=== PATIENT | male | born 1945 | race Caucasian/White ===

== ENCOUNTER 2019-05-17 20:56 | Emergency (ER) | payer MEDICARE, OTHER, SELFPAY ==
[2019-05-17 21:06] VITALS: BP 82/50; PULSE 75; RESP 11; O2SAT 92
--- NOTE | 2019-05-17 21:12 | ED.SYNCOPE ---
HPI - Syncope General Chief Complaint: Syncope Stated Complaint: Syncope Time Seen by Provider: 05/17/19 20:58 Source: patient, family () and EMS Mode of arrival: EMS Limitations: no limitations History of Present Illness HPI narrative: This is a 74-year-old male who comes to the emergency department for syncopal episode just prior to arrival. Patient had flown back from [place] waking about 3:00 a.m. this morning. Him and his had sat down to have dinner and were having food. At about 7:00 a.m. he had taken an edible, he also had about 2 and half glasses of wine and took his sildenafil at 8:00 p.m.. While they were sitting at dinner his states that he lost consciousness. She states he was very pale he appears diaphoretic and they believed he had about 3-4 minutes of unconsciousness. She states that she did tried a pinch him and sternal rub him and there was no response. She stated he she stayed in his chair and did not fall. Patient had about 90 seconds of witness decreased consciousness with EMS and they state then he immediately came back to consciousness and did not seem to have any altered mental status. Patient states that he did not have any sensation that he was about to pass out. Patient did not have any witnessed seizure activity by his . He states that this time he feels high but otherwise fine. He denies any headache, no vision changes, no weakness, no difficulty speech, no numbness or tingling. He denies any chest pain or pressure, no shortness of breath, no nausea, no vomiting no other recent GI or urinary symptoms. He did have urinary incontinence during the episode. He denies any swelling in his extremities. Patient did have a left hip replacement in February, otherwise he takes some vitamins but no other medical issues. 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 He does not smoke tobacco, he has alcohol usually on a Monday for their date night and had typically has not had a bowl on Monday further date night otherwise he does not typically partake. He is not on any other medications, no prior allergies. No other surgeries. Patient has had 1 similar event in the past remotely. Related Data Allergies Allergy/AdvReac Type Severity Reaction Status Date / Time No Known Drug Allergies Allergy Verified 05/17/19 21:50 Review of Systems Review of Systems ROS Unobtainable: All systems reviewed & are unremarkable except as noted in HPI and below Constitutional Constitutional: Denies body ache(s), Denies chills, Denies fever(s) and Denies headache(s) ENT Ears, Nose, Mouth, and Throat: Denies headache(s) Neurologic Neurologic: Denies headache(s) Patient History Surgical History (Updated 05/17/19 @ 21:17 by Pat England DO) History of hip replacement (Acute) Social History Smoking Status: Never smoker Smoking Status: Never smoker Alcohol type: wine (2.5 glasses every monday) Substance Use Type: marijuana (edible every monday) Exam Narrative Exam Narrative: GEN: well nourished, well appearing male, alert and oriented x 3, patient appears to be in mild distress. Patient is joking throughout evaluation. HEENT: Atraumatic, pupils are equal round reactive to light, extraocular movements are intact, nares are clear, TMs are clear with no fluid, there is no conjunctival pallor. Throat is clear without any exudates, erythema, tonsillar enlargement or uvular deviation, no facial droop. No meningeal signs. HEART: Regular rate and rhythm without murmur, clicks, rubs. Pulses are equal in upper and lower extremities LUNGS:Lungs clear to auscultation, no wheezes, rales, crackles, chest moves symmetrically ABD:bowel sounds normal, soft, non-tender, no guarding, rebound, rigidity, no masses noted, no hepatosplenomegaly :No CVA tenderness BACK: No cervical, thoracic or lumbar vertebral point tenderness. Patient has normal range of motion. Patient's gait is not tested. MSCL: Non-tender, no muscle atrophy, muscles strength 5/5 upper and lower extremities, full range of motion NEURO:CN 2-12 intact, sensation normal, reflexes 2/4 upper and lower extremities. finger nose finger test normal, heel verdugo test normal SKIN: No rash no erythema, no petechiae or other skin changes. Initial Vital Signs Initial Vital Signs: Vital Signs Pulse Rate 75 05/17/19 21:06 Respiratory Rate 11 L 05/17/19 21:06 Blood Pressure 82/50 L 05/17/19 21:06 Pulse Oximetry 92 05/17/19 21:06 Scores NIH Stroke Scale Level of Conciousness: Alert, keenly responsive Ask month/age: Answers both questions correctly. Open/close eyes, close hand: Performs both tasks correctly Best gaze horizontal: Normal Visual chaudhry: No visual loss Facial palsy: Normal symetrical movement Left arm drift: No drift for full 10 sec Right arm drift: No drift for full 10 sec Left leg drift: No drift for full 10 sec Right leg drift: No drift for full 10 sec Limb ataxia: Absent Sensory on face/arms/legs: Normal, no sensory loss Best language: No aphasia, normal Dysarthria: Normal Extinction or inattention: No abnormality Total NIH Stroke scale score: 0 Course Orders Ordered: ED Orders 05/17/19 21:11 CT head/brain wo con Stat XR chest 1V Stat 05/17/19 21:14 Complete Blood Count AUTO DIFF Stat Comprehensive Metabolic Panel Stat D Dimer Stat Ethanol (ETOH) Stat Lipase Stat Troponin & CK Cardiac Panel Stat 05/17/19 22:10 CT angio chest PE protocol Stat 05/17/19 23:15 Troponin & CK Cardiac Panel Stat EKG-12 Lead Stat 05/17/19 23:20 Urine Microscopic Stat Discontinued Medications Sodium Chloride (Normal Saline 0.9%) 1,000 mls @ 1,000 mls/hr IV BOLUS ONE Stop: 05/17/19 22:09 Last Infusion: 05/17/19 22:14 Dose: 1,000 mls/hr Documented by: Admin: 05/17/19 21:14 Dose: 1,000 mls/hr Documented by: FOX Vital Signs Vital signs: Vital Signs - 8 hr 05/17/19 21:06 05/17/19 21:33 05/17/19 21:45 Pulse Rate 75 64 65 Respiratory Rate 11 L 11 L Blood Pressure 82/50 L Blood Pressure [Right Arm] 84/52 L 100/60 Pulse Oximetry 92 95 05/17/19 23:31 Pulse Rate 65 Respiratory Rate 12 Blood Pressure Blood Pressure [Right Arm] 109/67 Pulse Oximetry 98 MDM - Syncope Lab Data Attestation: I reviewed the patient's lab results. Result diagrams: 05/17/19 21:14 05/17/19 21:14 Labs: Lab Results 05/17/19 05/17/19 05/17/19 Range/Units 21:14 21:14 21:14 WBC 9.6 (4.5-11.0) X10^3/uL RBC 4.71 (4.5-5.9) X10^6/uL Hgb 15.6 (13.5-17.5) g/dL Hct 45.6 (41-53) % MCV 96.8 (80-100) fL MCH 33.1 (26-34) PG MCHC 34.2 (30-36) % RDW 13.8 (11.6-14.8) % Plt Count 278 (150-400) X10^3/uL Neut % (Auto) 45.5 L (50-75) % Lymph % (Auto) 36.0 (25-40) % Sunflower % (Auto) 14.2 H (3-14) % Eos % (Auto) 3.2 (2-4) % Baso % (Auto) 1.1 (0-2) % Neut # (Auto) 4400 (6699-3779) /uL Lymph # (Auto) 3400 (6327-8343) /uL Sunflower # (Auto) 1400 H (0-900) /uL Eos # (Auto) 300 (0-450) /uL Baso # (Auto) 100 (0-100) /uL D-Dimer 387 H (<230) ng/mL Sodium (137-145) mmol/L Potassium (3.4-5.1) mmol/L Chloride (98-107) mmol/L Carbon Dioxide (22-32) mmol/L BUN (9-20) mg/dL Creatinine (0.66-1.25) mg/dL Estimated GFR (>60) mL/min BUN/Creatinine Ratio (6-22) Glucose (80-110) mg/dL Calcium (8.4-10.2) mg/dL Total Bilirubin (0.2-1.3) mg/dL AST (17-59) IU/L ALT (<50) IU/L Alkaline Phosphatase (38-126) U/L Total Creatine Kinase (55-170) U/L CK-MB (CK-2) CK-MB (CK-2) Rel Index Troponin I (0.01-0.034) ng/mL Total Protein (6.3-8.2) g/dL Albumin (3.5-5.0) g/dL Globulin (1.7-4.1) g/dL Albumin/Globulin Ratio (1.0-2.8) Lipase 45 (23-300) U/L Urine RBC (0-5/HPF) Urine WBC (0-5/HPF) Urine Bacteria (None) Ur Culture Indicated? Ethyl Alcohol ( - 10) mg/dL 05/17/19 05/17/19 05/17/19 Range/Units 21:14 23:15 23:20 WBC (4.5-11.0) X10^3/uL RBC (4.5-5.9) X10^6/uL Hgb (13.5-17.5) g/dL Hct (41-53) % MCV (80-100) fL MCH (26-34) PG MCHC (30-36) % RDW (11.6-14.8) % Plt Count (150-400) X10^3/uL Neut % (Auto) (50-75) % Lymph % (Auto) (25-40) % Sunflower % (Auto) (3-14) % Eos % (Auto) (2-4) % Baso % (Auto) (0-2) % Neut # (Auto) (1970-1832) /uL Lymph # (Auto) (7056-8204) /uL Sunflower # (Auto) (0-900) /uL Eos # (Auto) (0-450) /uL Baso # (Auto) (0-100) /uL D-Dimer (<230) ng/mL Sodium 138 (137-145) mmol/L Potassium 3.3 L (3.4-5.1) mmol/L Chloride 102 (98-107) mmol/L Carbon Dioxide 23 (22-32) mmol/L BUN 17 (9-20) mg/dL Creatinine 0.90 (0.66-1.25) mg/dL Estimated GFR > 60.0 (>60) mL/min BUN/Creatinine Ratio 18.9 (6-22) Glucose 122 H (80-110) mg/dL Calcium 9.9 (8.4-10.2) mg/dL Total Bilirubin 0.8 (0.2-1.3) mg/dL AST 30 (17-59) IU/L ALT 17 (<50) IU/L Alkaline Phosphatase 87 (38-126) U/L Total Creatine Kinase 50 L 39 L (55-170) U/L CK-MB (CK-2) TNP TNP CK-MB (CK-2) Rel Index TNP TNP Troponin I < 0.012 < 0.012 (0.01-0.034) ng/mL Total Protein 7.8 (6.3-8.2) g/dL Albumin 4.5 (3.5-5.0) g/dL Globulin 3.3 (1.7-4.1) g/dL Albumin/Globulin Ratio 1.4 (1.0-2.8) Lipase (23-300) U/L Urine RBC None seen (0-5/HPF) Urine WBC None seen (0-5/HPF) Urine Bacteria None seen (None) Ur Culture Indicated? Cult not indicated Ethyl Alcohol 78 H ( - 10) mg/dL Urine Dip Bedside Urine Glucose Negative Bedside Urine Bilirubin - Negative Bedside Urine Ketone - Negative Urine Specific [place] 1.010 Bedside Urine Occult Blood +/- Bedside Urine pH 6.0 Bedside Urine Protein - Negative Bedside Urine Urobilinogen - Negative Bedside Urine Nitrite - Negative Bedside Urine Leukocytes - Negative Esterase Imaging Data Chest x-ray: Attestation: I personally reviewed and interpreted this imaging study as follows: Radiologist's Impression: [address] [address] XRay Report Signed Patient: Getachew wOensMR#: [id number] : [id number]:[id number] Age/Sex: 74 / MDate of Service: 05/17/19 Loc: ED Accession Number: [id number] Procedure: XR chest 1V Ordering Provider: Pat England D.O. PROCEDURE: XR CHEST 1V INDICATIONS: syncope TECHNIQUE: One view of the chest was acquired. COMPARISON: None. FINDINGS: Surgical changes and devices: None. Lungs and pleura: Lungs are clear. No pleural effusions or pneumothorax. Mediastinum: Mediastinal contours appear normal. Heart size is normal. Bones and chest wall: No suspicious bony lesions. Overlying soft tissues appear unremarkable. IMPRESSION: No acute cardiopulmonary abnormality. Dictated by: Alex Kidd M.D. on 05/17/2019 at 21:51 Approved by: Alex Kidd M.D. on 05/17/2019 at 21:52 CT scan - head: Radiologist's Impression: [address] [address] [address] Scan Report Signed Patient: Getachew OwensMR#: [id number] : 7Acct:[id number] Age/Sex: 74 / MDate of Service: 05/17/19 Loc: ED Accession Number: [id number] Procedure: CT head/brain wo con Ordering Provider: Pat England D.O. PROCEDURE: CT HEAD/BRAIN WO CON INDICATIONS: syncope TECHNIQUE: Noncontrast 4.5 mm thick angled axial sections acquired from the foramen magnum to the vertex, with coronal and sagittal reformats. For radiation dose reduction, the following was used: automated exposure control, adjustment of mA and/or kV according to patient size. COMPARISON: None. FINDINGS: Image quality: Excellent. CSF spaces: Basal cisterns are patent. No extra-axial fluid collections. Ventricles are normal in size and shape. Brain: No midline shift. No intracranial masses or hemorrhage. No area of hypodensity in a large vascular distribution to suggest acute infarction. Periventricular hypodensity consistent with chronic microvascular ischemic change. Skull and face: Calvarium and visualized facial bones are intact, without suspicious lesions. Sinuses: Visualized sinuses and mastoids are clear. IMPRESSION: No acute intracranial abnormality demonstrated. Dictated by: Alex Kidd M.D. on 05/17/2019 at 21:52 Approved by: Alex Kidd M.D. on 05/17/2019 at 21:53 CT scan - chest: Radiologist's Impression: No evidence for central or appreciable segmental pulmonary emboli. Aortic root aneurysm all dilation. No evidence ordered sign of dissection to rupture. 4.8 cm. Dependent subsegmental atelectasis. No evidence of pneumothorax. No pleural effusion. No significant pericardial effusion. No lymphadenopathy is evident. Marked osteoporosis. Nonspecific circumcise hypodensities within the liver likely a benign etiology. ECG Data Attestation: I personally reviewed and interpreted this ECG as follows: Prior ECG tracings: available for review Interpretation: EKG 1 from EMS. Shows a sinus rhythm no ST elevation or depression appreciated. Rate is 69 P are as 184 QRS is 102 with a QTC of 445. No prior for comparison. EKG 2. Obtained in the ER. Shows a sinus rhythm. No ST elevation or depression appreciated. Rate is 68 MO 182 QRS of 101 and QTC of 438. Appears similar to EKG from EMS at 8:50 p.m. EKG 3. Shows sinus rhythm rate of 65 P are 168 QRS of 106 and QTC 459. There is no ST elevation or depression appreciated. EKG does appear similar to prior EKG from today. MDM Narrative Medical decision making narrative: Patient comes in with episode of syncope the by description from witness was several minutes. Patient did not have any sensation that he was about to have an episode of syncope. Had had sildenafil, 2-3 glasses of wine as well as an edible marijuana product within the several hours prior to this episode. Head CT, chest x-ray were negative. Labs did show an elevated D-dimer if that still outside the age-related cut off and CTA is negative for PE but does show dilation of the aortic root. EKG does not show any acute changes and troponin 2 hours apart is negative. A potassium of 3.3 with a glucose of 122 abnormalities. Point of care urine was negative. Patient was able to ambulate to the bathroom without any issues. I suspect the combination vaso dilator, alcohol and had double marijuana likely caused hypotension as he was hypotensive for EMS he and here although slowly improved with fluids and time. Patient prefers to be discharged at this time feels back to his normal self him and his both feel comfortable with this plan we discussed that he needs to return his any recurrent symptoms or issues. Patient was given a disc of his images and asked to follow-up with his primary care as he has dilation of the aortic root and may need surveillance and potentially repair in the future. There was no sign of dissection or evidence of rupture on today's examination and patient's not had any chest pain or similar symptoms suggesting this. Discharge Plan Departure Patient Disposition: Home Clinical Impression: Syncope Discharge Date/Time: 05/18/19 00:05 Instructions: DI for Syncope in Adults (Fainting) Activity Restrictions/Additional Instructions: Follow up with your physician on Monday for recheck. I would not recommend combining alcohol and edibles with sildenafil, these can decrease your blood pressure significantly. Your imaging shows dilation at the aortic root, discuss with your physician as they may follow with ECHO or further testing/surveillance. Return to the ER for fevers greater than 100.4F, recurrent syncope or passing out, lightheadedness, chest pain, shortness of breath, nausea or vomiting, altered mental status, new numbness, tingling or weakness, new swelling in your extremities or other new or concerning symptoms.
[2019-05-17] MEDS: SODIUM CHLORIDE 0.9% 1,000 ML 1000 ML IV (21:14)
[2019-05-17 21:20] LABS: Add Manual Diff / Slide Review NO; Basophils Absolute Auto 100 /uL (0-100); Basophils Percent Auto 1.1 % (0-2); Eosinophils Absolute Auto 300 /uL (0-450); Eosinophils Percent Auto 3.2 % (2-4); Hematocrit 45.6 % (41-53); Hemoglobin 15.6 g/dL (13.5-17.5); Lymphocytes Absolute Auto 3400 /uL (1100-4500); Mean Corpuscular HGB Conc 34.2 % (30-36); Mean Corpuscular Hemoglobin 33.1 PG (26-34); Mean Corpuscular Volume 96.8 fL (80-100); Monocytes Absolute Auto 1400 /uL (0-900); Monocytes Percent Auto 14.2 % (3-14); Neutrophils Absolute Auto 4400 /uL (1500-7000); Neutrophils Percent Auto 45.5 % (50-75); Platelet Count 278 X10^3/uL (150-400); Red Blood Cell Count 4.71 X10^6/uL (4.5-5.9); Red Cell Distribution Width 13.8 % (11.6-14.8); White Blood Cell Count 9.6 X10^3/uL (4.5-11.0)
[2019-05-17 21:22] LABS: D Dimer 387 ng/mL (<230)
[2019-05-17 21:24] LABS: Lipase 45 U/L (23-300)
[2019-05-17 21:26] LABS: Alanine Aminotransferase 17 IU/L (<50); Albumin 4.5 g/dL (3.5-5.0); Albumin Globulin Ratio 1.4 (1.0-2.8); Alkaline Phosphatase 87 U/L (38-126); Aspartate Aminotransferase 30 IU/L (17-59); BUN Creatinine Ratio 18.9 (6-22); Bilirubin Total 0.8 mg/dL (0.2-1.3); Blood Urea Nitrogen 17 mg/dL (9-20); Calcium 9.9 mg/dL (8.4-10.2); Carbon Dioxide 23 mmol/L (22-32); Chloride 102 mmol/L (98-107); Creatine Kinase 50 U/L (55-170); Estimated Glomerular Filt Rate > 60.0 mL/min (>60); Ethanol (ETOH) 78 mg/dL; Globulin 3.3 g/dL (1.7-4.1); Glucose 122 mg/dL (80-110); HEMOLYSIS < 15 (0-50); Potassium 3.3 mmol/L (3.4-5.1); Sodium 138 mmol/L (137-145); Total Protein 7.8 g/dL (6.3-8.2)
[2019-05-17 21:33] VITALS: BP 84/52; PULSE 64
[2019-05-17 21:37] LABS: Troponin I < 0.012 ng/mL (0.01-0.034)
[2019-05-17 21:45] VITALS: BP 100/60; PULSE 65; RESP 11; O2SAT 95
--- NOTE | 2019-05-17 22:10 | DI.CT.S_ITS ---
PROCEDURE: CT ANGIO CHEST PE PROTOCOL INDICATIONS: syncope of several minutes, recent flight, low BP, had silde TECHNIQUE: After the administration of intravenous contrast, 2 mm thick sections acquired from the pulmonary apices to the posterior costophrenic angles. 3-dimensional maximum intensity projection (MIP) coronal and sagittal reformats were then acquired through the thorax. For radiation dose reduction, the following was used: automated exposure control, adjustment of mA and/or kV according to patient size. COMPARISON: [facility], CT, CT HEAD/BRAIN WO CON, 05/17/2019, 21:37. [facility], CR, XR CHEST 1V, 05/17/2019, 21:24. FINDINGS: Image quality: Excellent. Pulmonary arteries: Pulmonary arteries are normal in size, and demonstrate no intraluminal filling defects to suggest central pulmonary embolism. Lungs and pleura: Lungs are clear. No pleural effusions or pneumothorax. Central and peripheral airways are patent. Mediastinum: Heart size is normal, without pericardial effusion. No mediastinal or hilar adenopathy. The aortic root is dilated at 4.6 cm, as demonstrated on series 6 image 23. Thoracic aorta is otherwise normal in caliber and enhancement. No findings of dissection. Esophagus is normal in caliber, without hiatal hernia. Bones and chest wall: No suspicious bony lesions. Age-appropriate bony degenerative changes are seen. Ribs and thoracic spine appear intact throughout. Thyroid gland demonstrates no significant CT abnormality. No axillary or supraclavicular adenopathy. Abdomen: Numerous enhancing water density lesions are seen throughout the liver, which are attributed to benign cysts. The visualized portions of the upper abdominal structures are otherwise unremarkable for imaging technique. IMPRESSION: Negative for pulmonary embolism. Aortic root dilatation. No findings of a additional aortic aneurysm or dissection can be seen. Incidental note is made of: Liver cysts Note: No significant discrepancy from the preliminary report. Dictated by: Hakeem Perez M.D. on 05/18/2019 at 9:06 Approved by: Hakeem Perez M.D. on 05/18/2019 at 9:11
[2019-05-17 23:31] VITALS: BP 109/67; PULSE 65; RESP 12; O2SAT 98
[2019-05-17 23:32] LABS: Creatine Kinase 39 U/L (55-170)
[2019-05-17 23:40] LABS: Bacteria Urine None Seen; RBC Urine None Seen (0-5/HPF); WBC Urine None Seen (0-5/HPF)
[2019-05-17 23:45] LABS: Troponin I < 0.012 ng/mL (0.01-0.034)
[2019-05-17 23:50] LABS: Culture Indicated Urine Cult Not Indicated
== END 2019-05-18 00:05 | disposition home or self-care (01) ==
PROVIDERS: Emergency Provider Emergency Medicine
DX: R55 Syncope and collapse (principal); I95.9 Hypotension, unspecified; F12.99 Cannabis use, unspecified with unspecified cannabis-induced disorder
CPT/HCPCS: 36415; 70450; 71045; 71275; 80053; 80320; 81003; 81015; 82550; 83690; 84484; 85025; 85379; 93005; 96360; 99284; 99285